=== PATIENT | female | born 1950 | race Caucasian/White ===

== ENCOUNTER 2016-07-11 11:14 | Emergency (ER) | payer MEDICARE ==
--- NOTE | ~2016-07-11 | CT2 ---
[facility] A Service of [facility] RADIOLOGY TEXT RESULTS PATIENT: MIGUEL RIVERA LOCATION: [facility] : 50 UNIT #: [id number] AGE: [address]: Ankit Matias MD SEX: F ORDER DR: [id number] [facility] [address] [place], [place] [address] [id number] MR#: [id number] #: [id number] NAME: MIGUEL RIVERA. : 1950 SEX: F STUDY DATE/TIME: 07/11/2016 13:58 UNIT: [facility] ROOM: STUDY DESCRIPTION: CT Abd and Pelv W Cont Attending Physician: Simon Matias M.D. Ordering Physician: Dennis Garcia M.D. Primary Care Physician: Gia Rollins M.D. MEDICAL IMAGING REPORT This report is preliminary unless electronic signature is present EXAM CT of abdomen and pelvis with contrast. DATE OF EXAM 07/11/2016 HISTORY 65-year-old female with nausea, vomiting, and diarrhea for several days. Abdominal pain. Patient states she is being treated for C difficile colitis. COMPARISON None. TECHNIQUE Helical scan performed through the abdomen and pelvis following administration of oral and IV contrast. Coronal and sagittal reformatted images. This CT exam was performed with one or more of the following radiation dose reduction techniques: automatic exposure control, adjustment of mA and/or kV according to patient size, and iterative reconstruction. FINDINGS Visualized lung bases are unremarkable. Fatty infiltration of the liver. The spleen, pancreas, gallbladder, both adrenal glands, and both kidneys are within normal limits. Abdominal aorta normal in course and caliber without dissection. Small bowel is unremarkable without obstruction. Appendix is normal. There is mild circumferential wall thickening of the sigmoid colon and rectum. Findings may be secondary to infectious colitis, given the patient's history. Inflammatory colitis could also be considered in appropriate clinical setting. No free fluid or free air. [facility] A Service of [facility] RADIOLOGY TEXT RESULTS PATIENT: MIGUEL RIVERA LOCATION: [facility] : 50 UNIT #: [id number] AGE: [address]: Ankit Matias MD SEX: F ORDER DR: The urinary bladder, uterus, and adnexa are unremarkable. No significant free pelvic fluid. No acute bony abnormality. IMPRESSION 1. Mild circumferential thickening of the distal sigmoid colon and rectum. This may represent active infectious colitis, given the patient's provided history of diagnosis of C. difficile colitis. Inflammatory colitis could also be considered in the differential. No evidence of abscess or perforation. 2. Normal appendix. 3. Hepatic steatosis. Dictated by... Oneil Herrmann M.D. THIS IS AN ELECTRONICALLY VERIFIED REPORT Oneil Herrmann M.D. at 07/12/2016 8:13 AM JUAN DAVID/emmett TD: 07/11/2016 17:38 JOB #: [id number] MEDICAL IMAGING REPORT Page 1 of 1 COPY
[2016-07-11 11:09] LABS: BASOPHIL# 0.1 X10e3 (0-0.3); BASOPHIL% 0.9 % (0-2.5); EOSINOPHIL# 0.4 X10e3 (0-0.7); EOSINOPHIL% 4.9 % (0.0-7.0); HEMATOCRIT 47.1 % (35.0-45.0); HEMOGLOBIN 15.6 gm/dL (12.0-16.0); LYMPHOCYTE# 1.3 X10e3 (1.0-3.5); LYMPHOCYTE% 15.5 % (17.0-45.0); MEAN CELL VOLUME 90.1 FL (83-96); MEAN CORPUSCULAR HEMOGLOBIN 29.9 PG (28-34); MEAN CORPUSCULAR HGB CONC 33.2 g/dL (30-36); MEAN PLATELET VOLUME 8.7 FL (6.5-11.5); MONOCYTE# 0.9 X10e3 (0-1.0); MONOCYTE% 11.2 % (3.0-12.0); NEUTROPHIL# 5.6 X10e3 (1.5-7.1); NEUTROPHIL% 67.5 % (40-75); PLATELET COUNT 287 X10e3 (140-420); RED BLOOD COUNT 5.22 X10e (3.90-5.30); RED CELL DISTRIBUTION WIDTH 12.3 % (11.0-15.5); WHITE BLOOD COUNT 8.3 X10e3 (4.0-10.5)
[2016-07-11 11:28] LABS: DIFF IND NO
[2016-07-11 11:44] LABS: BILIRUBIN, DIRECT 0.2 mg/dL (0.0-0.2); BILIRUBIN,INDIRECT 0.8 mg/dL (0.0-0.9); BUN/CREATININE RATIO 17.14; CALCIUM SERUM 10.9 mg/dL (8.4-10.2); CREATININE SERUM 0.7 mg/dL (0.6-1.4); GLOM FILT RATE Estimated 90.9 mL/min (>60); POTASSIUM 3.2 mmol/L (3.5-5.1); PROTEIN TOTAL SERUM 7.4 g/dL (6.0-8.3)
== END 2016-07-11 16:04 | disposition home or self-care (01) ==
LOC: CED 11:14
PROVIDERS: Emergency Medicine
DX: A04.7 Enterocolitis due to Clostridium difficile (principal); I10 Essential (primary) hypertension; R74.0 Nonspecific elevation of levels of transaminase and lactic acid dehydrogenase [LDH]
CPT/HCPCS: 36415; 74177; 80048; 80076; 83690; 85025; 96361; 96374; 96375; 99284; J2405; Q9967

== ENCOUNTER 2016-11-22 12:26 | Emergency (ER) | payer MEDICARE ==
[~2016-11-22] VITALS: Ht 154.9 cm; Wt 65.8 kg
== END 2016-11-22 13:40 | disposition left against medical advice (07) ==
LOC: CED 12:26
DX: Z53.21 Procedure and treatment not carried out due to patient leaving prior to being seen by health care provider (principal)